=== PATIENT | female | born 1965 | race Two or more races ===

== ENCOUNTER 2020-06-23 14:50 | Outpatient (CLI) | payer OTHER | END 2020-06-23 15:04 | disposition home or self-care (01) | LOC: MAMO-SONO 14:50 | PROVIDERS: ATTEND Obstetrics & Gynecology | DX: N60.11 Diffuse cystic mastopathy of right breast (principal); N60.12 Diffuse cystic mastopathy of left breast ==

== ENCOUNTER 2020-07-01 14:05 | Outpatient (CLI) | payer OTHER | END 2020-07-01 14:12 | disposition home or self-care (01) | LOC: SONOGRAMA 14:05 | PROVIDERS: ATTEND Obstetrics & Gynecology | DX: D25.9 Leiomyoma of uterus, unspecified (principal) ==

== ENCOUNTER 2020-08-04 10:03 | Outpatient (CLI) | payer OTHER | END 2020-08-04 10:09 | disposition home or self-care (01) | LOC: RAD 10:03 | DX: M06.4 Inflammatory polyarthropathy (principal); M19.049 Primary osteoarthritis, unspecified hand; M25.552 Pain in left hip ==

== ENCOUNTER 2021-01-24 13:43 | Outpatient (CLI) | payer OTHER | END 2021-01-24 13:47 | disposition home or self-care (01) | LOC: RAD 13:43 | PROVIDERS: ATTEND General Practice | DX: J45.998 Other asthma (principal) ==

== ENCOUNTER 2021-03-21 09:09 | Outpatient (CLI) | payer OTHER | END 2021-03-21 09:13 | disposition home or self-care (01) | LOC: SONOGRAMA 09:09 | PROVIDERS: ATTEND Pathology Anatomic Pathology & Clinical Pathology | DX: E04.2 Nontoxic multinodular goiter (principal) ==

== ENCOUNTER 2023-12-11 09:39 | Outpatient (CLI) | payer OTHER | END 2023-12-11 09:48 | disposition home or self-care (01) | LOC: MAMO-SONO 09:39 | PROVIDERS: ATTEND Obstetrics & Gynecology | DX: N95.0 Postmenopausal bleeding (principal); N60.11 Diffuse cystic mastopathy of right breast; N60.12 Diffuse cystic mastopathy of left breast ==